=== PATIENT | male | born 1955 | race Caucasian/White ===

== ENCOUNTER 2025-07-10 16:26 | Inpatient (IN) | payer MEDICARE, OTHER ==
[~2025-07-10] VITALS: Ht 190.5 cm; Wt 72.6 kg
[~2025-07-10 16:26] MED LIST: XARELTO
[2025-07-10] MEDS ORDERED: MORPHINE SULFATE INJ 2 MG/ML DISP.SYRIN IM ONE (20:00)
[2025-07-10 20:12] LABS: PLATELET COUNT (AUTO) 386 K/uL (150-450); RED BLOOD CELL COUNT(AUTO) 4.23 MIL/uL (4.5-6.0); RED CELL DISTRIBUTION WIDTH 14.6 % (11.5-15.0); WHITE BLOOD COUNT (AUTO) 6.9 K/uL (4.3-11.0)
[2025-07-10 20:19] LABS: CALCIUM, SERUM 9.1 mg/dL (8.5-10.1); CREATININE 1.0 mg/dL (0.6-1.3); SODIUM SERUM 129.0 mmol/L (136-145); UREA NITROGEN, BLOOD 34.0 mg/dL (7-18)
[2025-07-10] MEDS ORDERED: MORPHINE SULFATE INJ 4 MG/ML DISP.SYRIN ONE (20:23)
[2025-07-10] MEDS: APIXABAN 5 MG TABLET PO SCH ×3 (20:23→21:09)
[2025-07-10] MEDS ORDERED: APIXABAN 5 MG TABLET ONE ×2 (20:23→21:09)
[2025-07-10] MEDS: MORPHINE SULFATE INJ 2 MG/ML DISP.SYRIN IV ONE (20:23)
[2025-07-10 20:24] LABS: ASPARTATE AMINOTRANSFERASE 23.0 U/L (15-37); TOTAL PROTEIN, SERUM 8.6 g/dL (6.4-8.2)
[2025-07-10] MEDS ORDERED: ONDANSETRON HCL/PF 4 MG/2 ML VIAL IVP PRN (21:00)
[2025-07-10] MEDS ORDERED: ACETAMINOPHEN 325 MG TABLET PO PRN (21:00)
[2025-07-10] MEDS ORDERED: APIXABAN 5 MG TABLET PO SCH (21:00)
[2025-07-10] MEDS ORDERED: HYDROCODONE/APAP 5/325MG TABLET PO PRN (21:00)
[2025-07-10] MEDS ORDERED: MAGNESIUM HYDROXIDE 30 ML UDC PO PRN (21:00)
[2025-07-10 21:15] VITALS: BP 132/82; TEMP 98
[2025-07-10] MEDS: SODIUM ZIRCONIUM CYCLOSILICATE 10 GM POWD.PACK PO ONE (22:20)
[2025-07-10] MEDS ORDERED: APIXABAN 5 MG TABLET PO ONE (22:30)
[2025-07-11] MEDS: IV NS 0.9% 500 ML IV ONE (00:23)
[2025-07-11] MEDS: PANTOPRAZOLE 40 MG TABLET.DR PO SCH (07:30)
[2025-07-11 08:00] VITALS: BP 126/83; TEMP 98.1; O2SAT 90
[2025-07-11] MEDS ORDERED: APIX5TAB PO (08:20)
[2025-07-11] MEDS ORDERED: OXYC5TAB3 PO (08:20)
[2025-07-11] MEDS ORDERED: FURO20TA4 PO (08:20)
[2025-07-11] MEDS: APIXABAN 5 MG TABLET PO SCH (08:21)
[2025-07-11] MEDS ORDERED: APIXABAN 5 MG TABLET PO SCH (09:00)
[2025-07-11] MEDS: IV NS 0.9% 1,000 ML IV SCH (09:00)
[2025-07-11] MEDS: MORPHINE SULFATE INJ 4 MG/ML DISP.SYRIN IV PRN (09:04)
[2025-07-11 16:00] VITALS: BP 123/71; TEMP 97.7; O2SAT 98
[2025-07-11 20:00] VITALS: BP 151/83; TEMP 98.4; O2SAT 98
[2025-07-12 08:00] VITALS: BP 124/77; TEMP 98.1; O2SAT 100; O2SAT 96
[2025-07-12] MEDS ORDERED: IV NS 0.9% 1,000 ML IV PRN (09:04)
[2025-07-12] MEDS: MORPHINE SULFATE INJ 2 MG/ML DISP.SYRIN IV PRN (12:07)
[2025-07-12] MEDS ORDERED: MORPHINE SULFATE INJ 4 MG/ML DISP.SYRIN IV PRN (13:00)
[2025-07-12 16:00] VITALS: BP 129/85; TEMP 99; O2SAT 98
[2025-07-12 18:49] LABS: PLATELET COUNT (AUTO) 314 K/uL (150-450); RED BLOOD CELL COUNT(AUTO) 3.67 MIL/uL (4.5-6.0); RED CELL DISTRIBUTION WIDTH 14.0 % (11.5-15.0); WHITE BLOOD COUNT (AUTO) 6.0 K/uL (4.3-11.0)
[2025-07-12 19:14] LABS: CREATINE KINASE, TOTAL 80.0 U/L (39-308)
[2025-07-12 19:15] LABS: ASPARTATE AMINOTRANSFERASE 12.0 U/L (15-37); CALCIUM, SERUM 7.9 mg/dL (8.5-10.1); CREATININE 1.0 mg/dL (0.6-1.3); PHOSPHORUS 4.5 mg/dL (2.5-4.9); SODIUM SERUM 133.0 mmol/L (136-145); TOTAL PROTEIN, SERUM 7.0 g/dL (6.4-8.2); UREA NITROGEN, BLOOD 27.0 mg/dL (7-18)
[2025-07-12 21:28] VITALS: BP 117/77; TEMP 98.1; O2SAT 92
[2025-07-13] MEDS ORDERED: FUROSEMIDE 20 MG TABLET PO SCH (09:00)
[2025-07-13 09:57] VITALS: BP 139/65; TEMP 98.4; O2SAT 95
[2025-07-13] MEDS: oxyCODONE IR immediate release 5 MG TABLET PO PRN ×2 (13:00→19:21)
[2025-07-13 16:00] VITALS: BP 156/86; TEMP 97.9; O2SAT 96
[2025-07-13 16:27] VITALS: BP 147/85; TEMP 97.8; O2SAT 96
[2025-07-13 20:00] VITALS: BP 129/83; TEMP 97.9; O2SAT 97
[2025-07-14 06:11] LABS: PTH, INTACT 34 pg/mL (15-65)
[2025-07-14 08:00] VITALS: BP 110/60; TEMP 98.2; O2SAT 97
[2025-07-14 13:21] LABS: CALCIUM, SERUM 8.5 mg/dL (8.5-10.1); CREATININE 1.0 mg/dL (0.6-1.3); PHOSPHORUS 3.6 mg/dL (2.5-4.9); SODIUM SERUM 139.0 mmol/L (136-145); UREA NITROGEN, BLOOD 23.0 mg/dL (7-18)
[2025-07-14 16:00] VITALS: BP 109/58; TEMP 97.7; O2SAT 99
[2025-07-14 20:00] VITALS: BP 117/75; TEMP 97.9; O2SAT 98
[2025-07-15 07:00] VITALS: BP 107/67; TEMP 97.5; O2SAT 100
[2025-07-15 19:48] LABS: CALCIUM, SERUM 8.3 mg/dL (8.5-10.1); CREATININE 0.9 mg/dL (0.6-1.3); SODIUM SERUM 138.0 mmol/L (136-145); UREA NITROGEN, BLOOD 19.0 mg/dL (7-18)
[2025-07-15 20:00] VITALS: BP 138/75; TEMP 98.1; O2SAT 99
[2025-07-16 08:29] LABS: PLATELET COUNT (AUTO) 331 K/uL (150-450); RED BLOOD CELL COUNT(AUTO) 3.79 MIL/uL (4.5-6.0); RED CELL DISTRIBUTION WIDTH 14.2 % (11.5-15.0); WHITE BLOOD COUNT (AUTO) 4.7 K/uL (4.3-11.0)
[2025-07-16 09:00] VITALS: BP 121/76; TEMP 97.7; O2SAT 99
[2025-07-16] MEDS ORDERED: APIX5TAB PO ×2 (09:56)
[2025-07-17 04:07] LABS: *SPE A/G RATIO 0.9 (0.7-1.7); *SPE ALBUMIN 3.1 g/dL (2.9-4.4); *SPE ALPHA-1-GLOBULIN 0.3 g/dL (0.0-0.4); *SPE ALPHA-2-GLOBULIN 0.9 g/dL (0.4-1.0); *SPE BETA GLOBULIN 1.1 g/dL (0.7-1.3); *SPE GLOBULIN, TOTAL 3.3 g/dL (2.2-3.9); *SPE M-SPIKE Not Observed g/dL (Not Observed); *SPE PROTEIN TOTAL 6.4 g/dL (6.0-8.5); *SPEGAMMA GLOBULIN 1.1 g/dL (0.4-1.8)
== END 2025-07-16 15:30 | DRG 300 ==
LOC: ER 16:37 → TELE 20:45 → MED 23:28
PROVIDERS: ADMIT Nurse Practitioner Family
DX: I82.413 Acute embolism and thrombosis of femoral vein, bilateral (principal); E87.1 Hypo-osmolality and hyponatremia; I82.432 Acute embolism and thrombosis of left popliteal vein; I48.91 Unspecified atrial fibrillation; E86.9 Volume depletion, unspecified; N17.9 Acute kidney failure, unspecified; Z79.01 Long term (current) use of anticoagulants; I10 Essential (primary) hypertension; D64.9 Anemia, unspecified; F10.21 Alcohol dependence, in remission; Z59.00 Homelessness unspecified; E87.5 Hyperkalemia; F17.210 Nicotine dependence, cigarettes, uncomplicated; Z99.3 Dependence on wheelchair; Z91.199 Patient's noncompliance with other medical treatment and regimen due to unspecified reason; E83.89 Other disorders of mineral metabolism
CPT/HCPCS: 36415; 80048-TC; 80053-TC; 82550-TC; 83735-TC; 83970; 84100-TC; 84155; 84165; 85025-TC; 93970-TC; A4223; G0378; J2270; J7030; J7040